=== PATIENT | male | born 1995 | race Hispanic/Latino ===

== ENCOUNTER 2018-08-27 19:04 | Inpatient (IN) | payer SELFPAY ==
[~2018-08-27] VITALS: Ht 167.6 cm; Wt 83.2 kg
[2018-08-27 19:50] LABS: BASOPHILS % (AUTO) 0.6 % (0.0-5.0); EOSINOPHILS % (AUTO) 0.6 % (0.0-8.0); HEMATOCRIT 45.2 % (42-54); MEAN CORPUSCULAR HEMOGLOBIN 33.6 pg (27.0-33.0); MEAN CORPUSCULAR HGB CONC 39.6 g/dL (32.0-36.0); MEAN CORPUSCULAR VOLUME 84.7 fL (79-99); MONOCYTES % (AUTO) 6.3 % (3.0-13.0); NEUTROPHILS % (AUTO) 81.5 % (40.0-77.0); NUCLEATED RED BLOOD CELLS 0.1 % (0.0-0.19); PLATELET COUNT (AUTO) 323 K/uL (130-400); RED BLOOD CELL COUNT(AUTO) 5.33 MIL/uL (4.50-6.20); RED CELL DISTRIBUTION WIDTH 12.5 % (11.0-15.5); WHITE BLOOD COUNT (AUTO) 13.5 K/uL (4.8-10.8)
[2018-08-27 19:55] LABS: APPEARANCE,URINE Clear (CLEAR); BILIRUBIN,URINE Negative (NEGATIVE); COLOR,URINE Yellow (YELLOW); GLUCOSE, URINE (UA) >=1000 mg/dL (NEGATIVE); KETONES,URINE 15 mg/dL (NEGATIVE); LEUKOCYTE ESTERASE ,URINE Negative (NEGATIVE); NITRATE,URINE Negative (NEGATIVE); OCCULT BLOOD,URINE Negative (NEGATIVE); PH,URINE 6.5 (5.0-8.0); PROTEIN,URINE POS 1+ (NEGATIVE); UROBILINOGEN,URINE 0.2 mg/dL (0.2-1.0)
[2018-08-27] MEDS ORDERED: MAG HYDROX/AL HYDROX/SIMETH ES 30 ML SUSP UDCUP ONE (19:57)
[2018-08-27] MEDS ORDERED: SODIUM CHLORIDE 0.9% 1000ML 1,000 ML IV ONE (19:57)
[2018-08-27] MEDS ORDERED: LIDOCAINE HCL 2% VISCOUS 15 ML UDCUP ONE (19:57)
[2018-08-27 20:02] LABS: AMPHET/METH SCREEN,URINE NEGATIVE (NEGATIVE); BARBITURATE SCREEN, URINE NEGATIVE (NEGATIVE); BENZODIAZEPINES SCREEN,URINE NEGATIVE (NEGATIVE); CANNABINOID SCREEN,URINE NEGATIVE (NEGATIVE); COCAINE SCREEN,URINE NEGATIVE (NEGATIVE); OPIATE SCREEN,URINE NEGATIVE (NEGATIVE); PHENCYCLIDINE SCREEN,URINE NEGATIVE (NEGATIVE)
[2018-08-27 20:16] LABS: AMYLASE 92 U/L (25-115); LIPASE 1149 U/L (114-286)
[2018-08-27 20:50] LABS: ALBUMIN 2.5 g/dL (3.5-5.0); BILIRUBIN,TOTAL 1.4 mg/dL (0.2-1.0); POTASSIUM 5.8 mmol/L (3.5-5.1); TOTAL PROTEIN, SERUM 7.5 g/dL (6.0-8.3)
[2018-08-27] MEDS ORDERED: INSULIN HUMULIN R 100 UNIT/ML 3ML ONE (21:22)
[2018-08-27 21:39] LABS: CREATININE 0.7 mg/dL (0.5-1.5)
[2018-08-27 21:51] LABS: ABG BASE EXCESS -2.2 mmol/L (-2.0-3.0); ABG HCO3 19.8 mmol/L (21.0-28.0); ABG OXYGEN SATURATION 97.3 % (95.0-99.0); ABG PCO2 28 mmHg (35-48)
[2018-08-27] MEDS ORDERED: KETOROLAC TROMETHAMINE 30MG/ML ONE (23:22)
[2018-08-28] VITALS (7 sets, daily range): BP systolic 133–148; BP diastolic 77–93
[2018-08-28 00:04] LABS: CREATININE 0.6 mg/dL (0.5-1.5)
[2018-08-28 00:06] LABS: POTASSIUM 6.5 mmol/L (3.5-5.1)
[2018-08-28 01:05] LABS: POTASSIUM 3.8 mmol/L (3.5-5.1)
[2018-08-28 01:08] LABS: CREATININE 0.6 mg/dL (0.5-1.5)
[2018-08-28] MEDS ORDERED: ONDANSETRON HCL 4 MG/2 ML VIAL IV PRN (01:15)
[2018-08-28] MEDS ORDERED: ACETAMINOPHEN 325 MG TAB PO PRN (01:15)
--- NOTE | 2018-08-28 01:47 | NUR ---
ADMISSION. PT ADMITTED INTO ROOM 429 FROM ER. TRANSFERRED VIA WHEEL CHAIR. AWAKE, ALERT,AND RESPONSIVE. NO C/O PAIN OR DISCOMFORT AT THIS TIME. PT ORIENTED TO ROOM, BED IN LOWEST POSITION. CALL MUÑOZ WITHIN REACH. Addendum: 08/28/18 at 0151 by ESTHER FELICIANO RN Amended: Links added.
[2018-08-28] MEDS: SODIUM CHLORIDE 0.9% 1000ML 1,000 ML IV SCH ×3 (06:27→20:48)
[2018-08-28] MEDS: INSULIN HUMULIN R 100 UNIT/ML 3ML SQ SCH ×4 (06:28→20:47)
[2018-08-28 07:20] LABS: BASOPHILS % (AUTO) 0.7 % (0.0-5.0); EOSINOPHILS % (AUTO) 0.4 % (0.0-8.0); LYMPHOCYTES % (AUTO) 9.7 % (21.0-51.0); MEAN CORPUSCULAR HEMOGLOBIN 30.8 pg (27.0-33.0); MEAN CORPUSCULAR HGB CONC 35.5 g/dL (32.0-36.0); MEAN CORPUSCULAR VOLUME 86.6 fL (79-99); MONOCYTES % (AUTO) 6.7 % (3.0-13.0); NEUTROPHILS % (AUTO) 82.5 % (40.0-77.0); PLATELET COUNT (AUTO) 255 K/uL (130-400); RED BLOOD CELL COUNT(AUTO) 4.85 MIL/uL (4.50-6.20); RED CELL DISTRIBUTION WIDTH 12.7 % (11.0-15.5); WHITE BLOOD COUNT (AUTO) 14.5 K/uL (4.8-10.8)
[2018-08-28 07:37] LABS: POTASSIUM 3.6 mmol/L (3.5-5.1)
[2018-08-28] MEDS ORDERED: PHARMACY COMMUNICATION MISC SCH (07:45)
[2018-08-28 08:35] LABS: CREATININE 0.7 mg/dL (0.5-1.5); TOTAL PROTEIN, SERUM 5.5 g/dL (6.0-8.3)
[2018-08-28 08:36] LABS: ALBUMIN 2.9 g/dL (3.5-5.0)
[2018-08-28] MEDS: AMOXICILLIN 500 MG CAPSULE PO SCH ×2 (08:46→20:48)
[2018-08-28] MEDS: KETOROLAC TROMETHAMINE 15MG/ML IM PRN ×2 (08:46→17:20)
[2018-08-28] MEDS ORDERED: SODIUM POLYSTYRENE SULFONATE 15 GM/60 ML ML PO SCH (09:00)
[2018-08-28] MEDS ORDERED: FAMOTIDINE/PF 20 MG/2 ML VIAL IV SCH (09:00)
[2018-08-28] MEDS: CLARITHROMYCIN 500 MG TABLET PO SCH ×2 (11:01→20:48)
[2018-08-28] MEDS: LANSOPRAZOLE 15 MG CAPSULE.DR PO SCH ×2 (11:01→20:48)
--- NOTE | 2018-08-28 13:33 | NUR ---
Nutrition Intervention: Nutrition consult due to New onset diabetes. Pt. admitted with Dx of New Onset DM with Abd. Pain. Pt. on 60gm CCD diet with good p.o. intake, per pt. Pt. reports UBW was 189# 1 year ago. Pt. has lost 6#(3% of UBW) in 1 year. Labs reviewed(Alb 2.9, BG 322, HgbA1c 14%, Chol 363, TG 2104). LBM: 08/27/18. SR-21, elastic. BMI: 29.6, overweight. Pt. educated on Low Fat Low Cholesterol Diabetic diet and provided with education material. Pt. verbalized understanding. Recommendations: 1) Rec. Low Fat Low Cholesterol 60gm CCD diet. 2) Rec. 30ml ProMod QD with dinner meal. 3) Low Fat Low Cholesterol Diabetic diet education given to patient. 4) Continue to monitor pt's nutritional status. 5) RD to f/u in 5-7 days. Addendum: 08/28/18 at [address] Amended: Links added.
[2018-08-28] MEDS: ACETAMINOPHEN-CODEINE 300/30MG TAB PO PRN ×2 (13:43→20:58)
[2018-08-29] MEDS: KETOROLAC TROMETHAMINE 15MG/ML IM PRN (01:07)
[2018-08-29 03:31] VITALS: BP 128/77
[2018-08-29 05:58] LABS: BASOPHILS % (AUTO) 0.6 % (0.0-5.0); EOSINOPHILS % (AUTO) 1.3 % (0.0-8.0); LYMPHOCYTES % (AUTO) 14.2 % (21.0-51.0); MEAN CORPUSCULAR HEMOGLOBIN 29.9 pg (27.0-33.0); MEAN CORPUSCULAR HGB CONC 34.7 g/dL (32.0-36.0); MEAN CORPUSCULAR VOLUME 86.1 fL (79-99); MONOCYTES % (AUTO) 7.5 % (3.0-13.0); NEUTROPHILS % (AUTO) 76.4 % (40.0-77.0); NUCLEATED RED BLOOD CELLS 0.1 % (0.0-0.19); PLATELET COUNT (AUTO) 221 K/uL (130-400); RED BLOOD CELL COUNT(AUTO) 4.53 MIL/uL (4.50-6.20); RED CELL DISTRIBUTION WIDTH 12.4 % (11.0-15.5); WHITE BLOOD COUNT (AUTO) 12.7 K/uL (4.8-10.8)
[2018-08-29 06:04] LABS: CREATININE 0.7 mg/dL (0.5-1.5); POTASSIUM 3.4 mmol/L (3.5-5.1)
[2018-08-29] MEDS: SODIUM CHLORIDE 0.9% 1000ML 1,000 ML IV SCH (07:07)
[2018-08-29] MEDS: INSULIN HUMULIN R 100 UNIT/ML 3ML SQ SCH ×3 (07:24→17:27)
[2018-08-29 07:52] VITALS: BP 145/84
[2018-08-29] MEDS: AMOXICILLIN 500 MG CAPSULE PO SCH (08:47)
[2018-08-29] MEDS: LANSOPRAZOLE 15 MG CAPSULE.DR PO SCH (08:47)
[2018-08-29] MEDS: CLARITHROMYCIN 500 MG TABLET PO SCH (08:47)
[2018-08-29] MEDS: ACETAMINOPHEN-CODEINE 300/30MG TAB PO PRN ×2 (08:48→12:42)
[2018-08-29 09:35] LABS: AMYLASE 45 U/L (25-115); LIPASE 395 U/L (114-286)
[2018-08-29] MEDS ORDERED: LIDOCAINE HCL-MPF 1% 2ML VIAL IVP PRN (10:00)
[2018-08-29] MEDS ORDERED: POTASSIUM CHLORIDE 10% ELIXIR 20 MEQ/15 ML UDCUP PO PRN (10:00)
[2018-08-29] MEDS ORDERED: LACTULOSE 20 GM/30 ML UDCUP PO SCH (10:00)
[2018-08-29] MEDS ORDERED: POTASSIUM CHLORIDE 20MEQ/100ML 100 ML IV PRN (10:00)
[2018-08-29] MEDS: POTASSIUM CHLORIDE 20 MEQ ERTAB PO PRN ×2 (10:51→12:41)
[2018-08-29 11:00] VITALS: BP 137/93
--- NOTE | 2018-08-29 13:00 | NUR ---
INITIAL: Met with pt this afternoon to discuss dcp. Pt mentions that he lives w his Rafiq. Prior to admission he was independent w ambulation and ADLs. HE does not own any DME or receive services. Pt states that he feels safe and comfortable to [place]. Low income packet provided, along w [employer] [facility] [employer] information for DM. Discussed $4 discount medication program avail @ [facility] and [facility]. Discussed importance of establishing medical care w a PCP for close monitoring of DM. Addendum: 08/29/18 at 1431 by ELMER HENRY Amended: Links added.
[2018-08-29] MEDS ORDERED: METF500T7 PO (14:53)
[2018-08-29] MEDS ORDERED: FENO145T37 PO (14:53)
[2018-08-29 16:36] VITALS: BP 142/93
--- NOTE | 2018-08-29 19:43 | NUR ---
DISCHARGE DISCHARGE INSTRUCTION PROVIDED TO PATIENT. PROVIDED RX TEACHING, DIABETES MANAGEMENT TEACHING, AND H. PYLORI MANAGEMENT AND TREATMENT TEACHING. INFORMED PATIENT MD DISCHARGE ORDERS RECOMMEND FOLLOW-UP WITH A PRIMARY DOCTOR. PATIENT DOES NOT HAVE PRIMARY DOCTOR, I PROVIDED PATIENT WITH A LIST OF FAMILY DOCTORS. PATIENT VERBALIZED UNDERSTANDING OF DISCHARGE TEACHING. I ASKED PATIENT IF HE HAD QUESTION OR CONCERNS REGARDING DISCHARGE TEACHING AND PATIENT REPLIED NO. REMOVED 20G IV FROM RIGHT AC, CATHETER INTACT. PATIENT IS IN NO PAIN OR DISTRESS AT TIME OF DISCHARGE.
[2018-08-30] MEDS ORDERED: FENOFIBRATE NANOCRYSTALLIZED 145 MG TAB PO SCH (09:00)
== END 2018-08-29 18:30 | disposition home or self-care (01) | DRG 438 ==
LOC: EDH 19:04 → OBSVTOIN 19:05 → EDHIP 19:05 → 4AH 08-28 01:07
PROVIDERS: ADMIT Internal Medicine; ATTEND Internal Medicine
DX: K85.90 Acute pancreatitis without necrosis or infection, unspecified (principal); E11.00 Type 2 diabetes mellitus with hyperosmolarity without nonketotic hyperglycemic-hyperosmolar coma (NKHHC); E43 Unspecified severe protein-calorie malnutrition; E87.1 Hypo-osmolality and hyponatremia; E72.51 Non-ketotic hyperglycinemia; K29.70 Gastritis, unspecified, without bleeding; B96.81 Helicobacter pylori [H. pylori] as the cause of diseases classified elsewhere; E11.65 Type 2 diabetes mellitus with hyperglycemia; E78.00 Pure hypercholesterolemia, unspecified; E78.1 Pure hyperglyceridemia; E87.5 Hyperkalemia; K76.0 Fatty (change of) liver, not elsewhere classified; Z68.29 Body mass index [BMI] 29.0-29.9, adult
CPT/HCPCS: 36415; 36600; 76705; 80048; 80053; 80061; 80305; 81003; 82150; 82803; 82948; 83036; 83690; 85025; 86677; 93005; G0378; J1815; J1885; J7030